=== PATIENT | male | born 2000 | race Caucasian/White ===

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

== ENCOUNTER 2020-06-16 12:18 | Emergency (ER) | payer OTHER ==
[~2020-06-16] VITALS: Ht 180.3 cm; Wt 72.6 kg
--- NOTE | 2020-06-16 12:18 | NUR ---
PT ARRIVED TO ED VIA ALS TRANSFERED TO BED 10
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
[2020-06-16 12:21] VITALS: BP 130/88
[2020-06-16] MEDS ORDERED: NALO4SPR NS (12:48)
[2020-06-16 12:50] VITALS: BP 130/88
--- NOTE | 2020-06-16 12:50 | NUR ---
Patient does not wish to proceed with medical care recommended by Dr. Coughlin. Patient given information related to possible complications, up to and including , which could occur as a result of leaving hospital at this time. Patient verbalizes understanding of risks involved leaving against medical advice. Patient has signed AMA form.
--- NOTE | 2020-06-16 12:50 | NUR ---
Patient discharged with v/s stable. Written and verbal after care instructions given and explained. Patient alert, oriented and verbalized understanding of instructions. Ambulatory with steady gait. All questions addressed prior to discharge. ID band removed. Patient advised to follow up with PMD. Rx of Narcan given. Patient educated on indication of medication including possible reaction and side effects. Opportunity to ask questions provided and answered.
== END 2020-06-16 12:50 | disposition left against medical advice (07) ==
LOC: MED 12:18
DX: T40.411A Poisoning by fentanyl or fentanyl analogs, accidental (unintentional), initial encounter (principal); R41.82 Altered mental status, unspecified; Y93.89 Activity, other specified
CPT/HCPCS: 99283

== ENCOUNTER 2020-06-18 18:28 | Emergency (ER) | payer OTHER ==
[~2020-06-18] VITALS: Ht 175.3 cm; Wt 74.8 kg
[~2020-06-18 18:28] MED LIST changes: +NALO4SPR NS
[2020-06-18 18:30] VITALS: BP 124/70
--- NOTE | 2020-06-18 18:40 | NUR ---
PT BIBA AND AMBULATED TO BED FIVE, PT CHANGED INTO HOSPITAL GOWN AND PB GIVEN TO SECURITY. V/S TAKEN AND GIVEN TO CHARGE NURSE.
--- NOTE | 2020-06-18 18:42 | NUR ---
[place] [employer] AT BED SIDE WITH PT AT THIS TIME.
--- NOTE | 2020-06-18 18:44 | NUR ---
19 Y/O M BIB AMB, PATIENT PRESENTS TO ED WITH OVERDOSE ON FENTANYL. [facility] STATES MOTHER FOUND HIM WITH FENTANYL AND GAVE HIM 4MG OF NARCAN INTRANASAL, MOTHER STATES HE HAS SI, PT DENIES ANY SI, HARM TO OTHERS OR SELF. DENIES N/V/D; SKIN IS PINK/WARM/DRY; AAOX4 WITH EVEN AND STEADY GAIT; LUNGS CLEAR BL; HR EVEN AND REGULAR; PT DENIES ANY FEVER, CP, SOB, OR COUGH AT THIS TIME; PATIENT STATES PAIN OF 0/10 AT THIS TIME; VSS; PATIENT POSITIONED FOR COMFORT; HOB ELEVATED; BEDRAILS UP X2; BED DOWN. ER MD MADE AWARE OF PT STATUS. POLICE AT BEDSIDE FOR 5150 REPORT. PT SMOKED MORE THAN REGULAR DOSE AROUND 1730. PMH: SEIZURES, DRUG USE NKA MED: NARCAN 4MG NASAL
--- NOTE | 2020-06-18 19:10 | NUR ---
REPORT RECEIVED FROM ANN BRUSH FOR CONTINUATION OF CARE.
--- NOTE | 2020-06-18 19:14 | NUR ---
LAB AT BEDSIDE.
--- NOTE | 2020-06-18 19:15 | NUR ---
PT RESTING IN BED, LOCKED AND IN LOWEST POSITION, HOB ELEVATED, SIDE RAIL X2 FOR PT SAFETY. PT IS ACTING CALM AND COOPERATIVE. VSS. NO ACUTE DISTRESS NOTED. SI PRECAUTIONS IN PLACE.
--- NOTE | 2020-06-18 19:16 | NUR ---
NADIR FALLON AND [facility] SWABBED AND SENT WITH ANIBAL MEEHAN. PT STATES HE CAN GIVE URINE AND WILL TRY USING URINAL.
--- NOTE | 2020-06-18 19:16 | NUR ---
TELEPSYCH INITIATED PER DE. Betty JONES
[2020-06-18 19:38] LABS: BASOPHILS % (AUTO) 0.1 % (0.0-2.0); EOSINOPHILS % (AUTO) 0.2 % (0.0-4.0); HEMATOCRIT 43.5 % (36-52); HEMOGLOBIN 14.9 g/dL (12.0-18.0); LYMPHOCYTES # (AUTO) 1.6 K/uL (2.0-11.5); LYMPHOCYTES % (AUTO) 20.2 % (20.5-51.1); MEAN CORPUSCULAR HEMOGLOBIN 33 pg (27-31); MEAN CORPUSCULAR HGB CONC 34 g/dL (33-37); MEAN CORPUSCULAR VOLUME 94.7 fL (80-94); MONOCYTES # (AUTO) 0.6 K/uL (0.8-1.0); MONOCYTES % (AUTO) 7.5 % (1.7-9.3); NEUTROPHILS # (AUTO) 5.8 K/uL (1.8-7.7); PLATELET COUNT (AUTO) 275 K/uL (140-450); RED CELL DISTRIBUTION WIDTH 13.3 % (11.6-13.7)
--- NOTE | 2020-06-18 19:44 | NUR ---
SPOKE W/ DR. LAO REGARDING PT STATUS . NO NEW ORDERS PROVIDED AT THIS TIME.
--- NOTE | 2020-06-18 19:44 | NUR ---
TELEPSYCH DOCTOR SPEAKING WITH PT VIA REMOTE COMMUNICATION
[2020-06-18 19:54] LABS: ALBUMIN 4.3 g/dL (3.4-5.0); ANION GAP 8.7 (8-16); ASPARTATE AMINOTRANSFERASE 24 U/L (15-37); CARBON DIOXIDE 30.9 mmol/L (21-32); CHLORIDE 103 mmol/L (98-107); CREATININE 0.8 mg/dL (0.6-1.3); GFR ARICAN-AMERICAN 160 mL/min (>90); GLUCOSE 118 mg/dL (74-106); POTASSIUM 4.6 mmol/L (3.5-5.1); SODIUM SERUM 138 mmol/L (136-145); TOTAL BILIRUBIN 0.5 mg/dL (0.0-1.0); UREA NITROGEN, BLOOD 9 mg/dL (7-18)
[2020-06-18 20:01] LABS: ACETAMINOPHEN < 0.5 ug/ml (10-30); SALICYLATE < 2.8 mg/dL (2.8-20.0)
[2020-06-18 20:09] LABS: APPEARANCE,URINE CLEAR (CLEAR); BILIRUBIN,URINE NEGATIVE (NEGATIVE); BLOOD, URINE NEGATIVE (NEGATIVE); COLOR,URINE YELLOW (YELLOW); LEUKOCYTE ESTERASE ,URINE NEGATIVE (NEGATIVE); NITRITE, URINE NEGATIVE (NEGATIVE); UGLUCOSE NEGATIVE (NEGATIVE)
--- NOTE | 2020-06-18 20:30 | NUR ---
PT STATES IV CATH ACCIDENTALLY CAME OUT. IV catheter intact and site benign. Applied folded 4x4 gauze and tape to stop bleeding.
--- NOTE | 2020-06-18 20:40 | NUR ---
PT PROVIDED PHONE TO SPEAK W/ MOTHER.
[2020-06-18 20:43] LABS: BARBITURATE, URINE POSITIVE ng/ml (NEG <=200); BENZODIAZEPINE, URINE POSITIVE ng/mL (NEG <=200); CANNABINOID, URINE POSITIVE ng/mL (NEG <=50); COCAINE, URINE POSITIVE ng/mL (NEG <=300); OPIATE, URINE NEGATIVE ng/mL (NEG <=2000); PHENCYCLIDINE SCREEN,URINE NEGATIVE ng/mL (NEG <=25)
--- NOTE | 2020-06-18 20:50 | NUR ---
PT STATES HE WAS NOT TRYING TO HURT HIMSELF. PT STATES THAT HE GOT INTO AN ARGUMENT WITH HIS MOTHER ABOUT GETTING HELP FOR HIS DRUG ISSUE AND SHE TOLD HIM THAT IF HE DIDN'T GO ON A 72 HOLD SHE WOULD CALL THE POLICE. PT GOT UPSET AND HIS MOTHER CALLED 911. PT STATES HE DOES HAVE DEPRESSION AND KNOWS HE NEEDS TO GET HELP BUT FEELS LIKE HE HAS TOO MUCH GOING ON TO GET THE HELP HE NEEDS. PT IS RESTING IN BED, LOCKED AND IN LOWEST POSITION, HOB ELEVATED. PT IS CALM, COOPERATIVE AND ACTING APPROPRIATELY. VSS. NO ACUTE DISTRESS NOTED. SI PRECAUTIONS IN PLACE.
--- NOTE | 2020-06-18 22:18 | NUR ---
PT SLEEPING RIGHT LATERALLY , BED LOCKED AND IN LOWEST POSITION, HOB ELEVATED, SIDE RAIL X 2 FOR PT SAFETY. VISIBLE RISE AND FALL OF CHEST. RR EVEN AND UNLABORED. VSS. NO ACUTE DISTRESS NOTED.
[2020-06-19] MEDS ORDERED: LEVE500T18 PO (00:10)
[2020-06-19] MEDS ORDERED: SERT-515 PO (00:10)
[2020-06-19] MEDS ORDERED: PHEN50CT5 PO (00:10)
[2020-06-19] MEDS ORDERED: OLAN2.5T1 PO (00:10)
[2020-06-19] MEDS ORDERED: [UNRECOGNIZED DRUG - CODE] (00:10)
[2020-06-19] MEDS ORDERED: ALPR0.2518 PO (00:10)
--- NOTE | 2020-06-19 00:10 | NUR ---
ADDITIONAL PATIENT MILENAS BIB PD - HOME MEDICATIONS & 1 BOX OF CIGARETTES. PT'S MEDICATION RECONCILIATION UPDATED AT THIS TIME. ADDITIONAL BELONGINGS SENT TO SECURITY.
--- NOTE | 2020-06-19 02:00 | NUR ---
PT RESTING IN BED, LOCKED AND IN LOWEST POSITION, VISIBLE RISE AND FALL OF CHEST, RR EVEN AND UNLABORED. VSS. SI PRECAUTIONS IN PLACE.
--- NOTE | 2020-06-19 04:25 | NUR ---
PT SLEEPING SUPINE, AROUSABLE TO VERBAL STIMULATION. VISIBLE RISE AND FALL OF CHEST. VSS. NO ACUTE DISTRESS NOTED. SI PRECAUTIONS IN PLACE.
--- NOTE | 2020-06-19 07:07 | NUR ---
Report given to ANN Squires for transfer of care.
--- NOTE | 2020-06-19 07:08 | NUR ---
Received report from ANN Gutierrez, transfer of care at this time.
--- NOTE | 2020-06-19 08:10 | NUR ---
Spoke with Tawny from [facility], will be calling back for insurance purposes regarding placement.
--- NOTE | 2020-06-19 08:31 | NUR ---
Packet faxed to: [facility] Maegan Valente
--- NOTE | 2020-06-19 08:41 | NUR ---
PT SLEEPING SUPINE, AROUSABLE TO VERBAL STIMULATION. VISIBLE RISE AND FALL OF CHEST. VSS. NO ACUTE DISTRESS NOTED. SI PRECAUTIONS IN PLACE.
--- NOTE | 2020-06-19 10:27 | NUR ---
PT SLEEPING SUPINE, AROUSABLE TO VERBAL STIMULATION. VISIBLE RISE AND FALL OF CHEST. VSS. NO ACUTE DISTRESS NOTED. SI PRECAUTIONS IN PLACE.
--- NOTE | 2020-06-19 11:54 | NUR ---
Pt resting in room, HOB elevated for comfort, calm and cooperative, will continue to monitor.
--- NOTE | 2020-06-19 11:55 | NUR ---
Patient to be transferred to [facility]. Is being transferred due to PSYCH. Receiving facility has accepting physician and available space. ER physician has signed transfer form. Patient or responsible constitution party has agreed to transfer and signed form. Patient belongings inventoried and will be sent with patient. Copy of nursing notes, lab reports, EKG, Physicians Orders and X-rays to be sent with patient. Report called to PASQUALE at receiving facility. [facility] ambulance service has been called for transfer.
[2020-06-19 12:03] VITALS: BP 117/50
== END 2020-06-19 11:55 ==
LOC: MED 18:28
DX: T40.412A Poisoning by fentanyl or fentanyl analogs, intentional self-harm, initial encounter (principal); R41.82 Altered mental status, unspecified; Z20.822 Contact with and (suspected) exposure to COVID-19; Y92.89 Other specified places as the place of occurrence of the external cause
CPT/HCPCS: 80053; 80305; 81003; 85025; 87426; 99285; G0480; G0482; U0003

== ENCOUNTER 2020-11-09 17:32 | Emergency (ER) | payer OTHER ==
[~2020-11-09] VITALS: Ht 175.3 cm; Wt 70.3 kg
[~2020-11-09 17:32] MED LIST changes: +ALPR0.2518 PO; +LEVE500T18 PO; +OLAN2.5T1 PO; +PHEN50CT5 PO; +SERT-515 PO; +[UNRECOGNIZED DRUG - CODE]
[2020-11-09 17:34] VITALS: BP 147/108
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
--- NOTE | 2020-11-09 17:46 | NUR ---
Pt will be moved to lobby from cristina to [facility]ryan.
--- NOTE | 2020-11-09 18:00 | NUR ---
Pt left out of ED without discharge instructions. Pt was seen and medically cleared by MATT Dinh.
== END 2020-11-09 18:00 | disposition home or self-care (01) ==
LOC: MED 17:32
DX: Z00.00 Encounter for general adult medical examination without abnormal findings (principal)
CPT/HCPCS: 99281; 99283

== ENCOUNTER 2021-05-04 22:58 | Emergency (ER) | payer MEDICAID, OTHER ==
[~2021-05-04] VITALS: Ht 175.3 cm; Wt 68.0 kg
[2021-05-04 22:59] VITALS: BP 134/75
--- NOTE | 2021-05-04 22:59 | NUR ---
BIB BLS TAKEN TO BED #7
--- NOTE | 2021-05-04 23:02 | NUR ---
Patient BIB by BLS/EMS and Shola GIRON. C/O Suicidal Ideation x today. 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 A/O, X4, bilateral knee pain, no injury.
--- NOTE | 2021-05-04 23:05 | NUR ---
Removed patient's belonging and given to security.
--- NOTE | 2021-05-04 23:09 | NUR ---
[place] [employer] AT BEDSIDE
--- NOTE | 2021-05-04 23:10 | NUR ---
Dr. Meadows at bedside to exam patient.
--- NOTE | 2021-05-04 23:11 | NUR ---
Covid-19 (PCR and Rapid ) swabs collected and sent to lab.
--- NOTE | 2021-05-04 23:15 | NUR ---
Collected urine sample and sent to lab.
--- NOTE | 2021-05-04 23:16 | NUR ---
PT'S BELONGINGS DOCUMENTED AND COLLECTED BY HOSPITAL SECURITY FOR STORAGE IN SAFE.
[2021-05-04 23:25] VITALS: BP 78/134
[2021-05-04] MEDS: CLONIDINE HYDROCHLORIDE 0.1 MG TAB PO ONE (23:25)
[2021-05-04 23:36] LABS: BASOPHILS % (AUTO) 0.3 % (0.0-2.0); EOSINOPHILS # (AUTO) 0.1 K/uL (0-0.4); EOSINOPHILS % (AUTO) 1.3 % (0.0-4.0); HEMATOCRIT 37.5 % (36-52); HEMOGLOBIN 13.1 g/dL (12.0-18.0); LYMPHOCYTES # (AUTO) 3.3 K/uL (2.0-11.5); LYMPHOCYTES % (AUTO) 45.6 % (20.5-51.1); MEAN CORPUSCULAR HEMOGLOBIN 30 pg (27-31); MEAN CORPUSCULAR HGB CONC 35 g/dL (33-37); MEAN CORPUSCULAR VOLUME 87.2 fL (80-94); MONOCYTES # (AUTO) 0.6 K/uL (0.8-1.0); MONOCYTES % (AUTO) 8.4 % (1.7-9.3); NEUTROPHILS # (AUTO) 3.2 K/uL (1.8-7.7); NEUTROPHILS % (AUTO) 44.4 % (42.2-75.2); PLATELET COUNT (AUTO) 300 K/uL (140-450); RED BLOOD CELL COUNT(AUTO) 4.29 MIL/uL (4.20-6.10); RED CELL DISTRIBUTION WIDTH 13.6 % (11.6-13.7); WHITE BLOOD COUNT (AUTO) 7.3 K/uL (4.5-11.0)
[2021-05-04 23:42] LABS: BARBITURATE, URINE NEGATIVE ng/ml (NEG <=200); BENZODIAZEPINE, URINE POSITIVE ng/mL (NEG <=200); CANNABINOID, URINE POSITIVE ng/mL (NEG <=50); COCAINE, URINE NEGATIVE ng/mL (NEG <=300); OPIATE, URINE NEGATIVE ng/mL (NEG <=2000); PHENCYCLIDINE SCREEN,URINE NEGATIVE ng/mL (NEG <=25)
[2021-05-04] MEDS: NACL 0.9% 1,000 ML IV ONE (23:45)
[2021-05-04 23:51] LABS: ACETAMINOPHEN < 0.5 ug/ml (10-30); ALBUMIN 4.1 g/dL (3.4-5.0); ANION GAP 12.8 (8-16); ASPARTATE AMINOTRANSFERASE 18 U/L (15-37); CARBON DIOXIDE 29.4 mmol/L (21-32); CHLORIDE 104 mmol/L (98-107); CREATININE 0.6 mg/dL (0.6-1.3); GFR ARICAN-AMERICAN 221 mL/min (>90); GLUCOSE 102 mg/dL (74-106); POTASSIUM 4.2 mmol/L (3.5-5.1); SODIUM SERUM 142 mmol/L (136-145); TOTAL BILIRUBIN 0.3 mg/dL (0.0-1.0); UREA NITROGEN, BLOOD 9 mg/dL (7-18)
[2021-05-04 23:52] LABS: SALICYLATE < 2.8 mg/dL (2.8-20.0)
--- NOTE | 2021-05-05 00:02 | NUR ---
Provided Pudding as request.
--- NOTE | 2021-05-05 00:05 | NUR ---
[employer] AT BEDSIDE STATING ONLY MEDICAL CLEARANCE IS NEEDED FOR BOOKING AND THEY WILL TRANPORT PT TO A PSYCH FACILITY.
--- NOTE | 2021-05-05 00:08 | NUR ---
Patient pulled IV line, Dr. Meadows notified.
--- NOTE | 2021-05-05 00:17 | NUR ---
PT MEDICALLY CLEARED BY DR. GONZALEZ. PREBOOK CLEARANCE FORM GIVEN TO OFFICER DEBRA, #[id number].
== END 2021-05-05 00:17 ==
LOC: MED 22:58
DX: R45.851 Suicidal ideations (principal); Z20.822 Contact with and (suspected) exposure to COVID-19; F11.10 Opioid abuse, uncomplicated; F41.9 Anxiety disorder, unspecified
CPT/HCPCS: 36415; 80053; 80305; 85025; 87426; 93005; 99284; G0480; G0482; J7030; U0003

== ENCOUNTER 2021-06-15 21:59 | Emergency (ER) | payer MEDICAID, OTHER ==
[~2021-06-15] VITALS: Ht 177.8 cm; Wt 63.5 kg
[2021-06-15 22:02] VITALS: BP 119/67
[2021-06-15] MEDS ORDERED: LIDOCAINE MPF 1% 10 MG/ML VIAL IM ONE (22:40)
[2021-06-15 23:40] VITALS: BP 119/67
== END 2021-06-15 23:40 ==
LOC: MED 21:59
DX: T40.601A Poisoning by unspecified narcotics, accidental (unintentional), initial encounter (principal); T42.4X1A Poisoning by benzodiazepines, accidental (unintentional), initial encounter; S31.821A Laceration without foreign body of left buttock, initial encounter; F19.10 Other psychoactive substance abuse, uncomplicated; W50.0XXA Accidental hit or strike by another person, initial encounter; Y93.89 Activity, other specified; Y92.89 Other specified places as the place of occurrence of the external cause; Y99.8 Other external cause status
CPT/HCPCS: 12001; 90471; 90715; 99283; J2001